=== PATIENT | male | born 1950 | race Caucasian/White ===

== ENCOUNTER 2017-12-23 09:00 | Inpatient (IN) | payer OTHER ==
[~2017-12-23] VITALS: Ht 180.3 cm; Wt 108.9 kg
[2017-12-23] MEDS ORDERED: GLUCOPHAGE XR500 MG PO (10:33)
[2017-12-23] MEDS ORDERED: FENOFIBRATE160 MG PO (10:33)
[2017-12-23] MEDS ORDERED: HYZAAR 100-12.1 EACH PO (10:33)
[2017-12-23] MEDS ORDERED: NORVASC5 MG PO (10:33)
[2017-12-23] MEDS ORDERED: GABAPENTIN800 MG PO (10:34)
[2017-12-31] MEDS ORDERED: DOCUSATE SODIU100 MG PO (08:25)
[2017-12-31] MEDS ORDERED: GABAPENTIN800 MG PO (08:25)
[2017-12-31] MEDS ORDERED: AMOX-CLAV 875-1 EACH PO (08:26)
[2017-12-31] MEDS ORDERED: PERCOCET 5-3251 EACH PO (08:27)
[2017-12-31] MEDS ORDERED: CLONAZEPAM1 MG PO (08:27)
== END 2017-12-31 13:56 | disposition home or self-care (01) | DRG 455 ==
LOC: O/R 12-30 06:00 → PED 12-30 06:00 → SURH 12-30 09:00 → PED 12-30 18:36
PROVIDERS: Orthopaedic Surgery Orthopaedic Surgery of the Spine
PROC: 0SG1071 Fusion of 2 or more Lumbar Vertebral Joints with Autologous Tissue Substitute, Posterior Approach, Posterior Column, Open Approach (ICD-10-PCS; 2017-12-30)
PROC: 0ST20ZZ Resection of Lumbar Vertebral Disc, Open Approach (ICD-10-PCS; 2017-12-30)
PROC: 0SG10AJ Fusion of 2 or more Lumbar Vertebral Joints with Interbody Fusion Device, Posterior Approach, Anterior Column, Open Approach (ICD-10-PCS; 2017-12-30)
PROC: 07DS3ZZ Extraction of Vertebral Bone Marrow, Percutaneous Approach (ICD-10-PCS; 2017-12-30)
PROC: 0SG10A0 Fusion of 2 or more Lumbar Vertebral Joints with Interbody Fusion Device, Anterior Approach, Anterior Column, Open Approach (ICD-10-PCS; principal; 2017-12-30 13:30)
DX: M41.56 Other secondary scoliosis, lumbar region (principal); M51.16 Intervertebral disc disorders with radiculopathy, lumbar region; M48.061 Spinal stenosis, lumbar region without neurogenic claudication; M47.26 Other spondylosis with radiculopathy, lumbar region; E11.9 Type 2 diabetes mellitus without complications; I10 Essential (primary) hypertension

== ENCOUNTER 2021-08-16 12:45 | Inpatient (IN) | payer OTHER ==
[~2021-08-16] VITALS: Ht 182.9 cm; Wt 111.1 kg
[~2021-08-16 12:45] MED LIST: AMOX-CLAV 875-1 EACH PO; CLONAZEPAM1 MG PO; DOCUSATE SODIU100 MG PO; FENOFIBRATE160 MG PO; GABAPENTIN800 MG PO; GLUCOPHAGE XR500 MG PO; HYZAAR 100-12.1 EACH PO; NORVASC5 MG PO; PERCOCET 5-3251 EACH PO
[2021-08-16] MEDS ORDERED: COZAAR100 MG PO (15:26)
[2021-08-16] MEDS ORDERED: HYDROCHLOROTHIA25 MG PO (15:26)
[2021-08-16] MEDS ORDERED: DIOVAN160 M1 PO (15:27)
[2021-08-19] MEDS ORDERED: COLACE100 MG PO (14:00)
[2021-08-19] MEDS ORDERED: PERCOCET 5-3251 EACH PO (14:01)
[2021-08-19] MEDS ORDERED: AMOX-CLAV 875-1 EACH PO (14:01)
[2021-08-19] MEDS ORDERED: NEURONTIN800 MG PO (14:01)
[2021-08-19] MEDS ORDERED: MEDROLPACK PO (14:01)
== END 2021-08-20 14:17 | disposition home or self-care (01) | DRG 455 ==
LOC: ADM 12:45 → EDSTATUS 12:45 → O/R 08-19 07:07 → PED 08-19 07:07 → SURH 08-19 12:45 → SURG 08-19 21:31 → PED 08-19 22:15
PROVIDERS: ADMIT Orthopaedic Surgery Orthopaedic Surgery of the Spine; ATTEND Orthopaedic Surgery Orthopaedic Surgery of the Spine
PROC: 0SG30AJ Fusion of Lumbosacral Joint with Interbody Fusion Device, Posterior Approach, Anterior Column, Open Approach (ICD-10-PCS; principal; 2021-08-20)
PROC: 0SG3071 Fusion of Lumbosacral Joint with Autologous Tissue Substitute, Posterior Approach, Posterior Column, Open Approach (ICD-10-PCS; 2021-08-20)
PROC: 0QB30ZZ Excision of Left Pelvic Bone, Open Approach (ICD-10-PCS; 2021-08-20)
PROC: 01NB0ZZ Release Lumbar Nerve, Open Approach (ICD-10-PCS; 2021-08-20)
PROC: 07DR0ZZ Extraction of Iliac Bone Marrow, Open Approach (ICD-10-PCS; 2021-08-20)
DX: M51.37 Other intervertebral disc degeneration, lumbosacral region (principal); M43.17 Spondylolisthesis, lumbosacral region; M48.07 Spinal stenosis, lumbosacral region; M51.17 Intervertebral disc disorders with radiculopathy, lumbosacral region; I10 Essential (primary) hypertension; E11.9 Type 2 diabetes mellitus without complications